=== PATIENT | female | born 1990 | race Caucasian/White ===

== ENCOUNTER 2017-05-18 23:02 | Emergency (ER) | payer SELFPAY ==
[~2017-05-18] VITALS: Ht 152.4 cm; Wt 47.6 kg
[~2017-05-18 23:02] MED LIST: birth control
[2017-05-18 23:12] VITALS: BP_SYST 141
--- NOTE | 2017-05-19 00:57 | NUR ---
Placed in room 04 . Placed on quality assurance monitor body, blood pressure machine and pulse oximeter. To gown for exam. Side rails up. Report given to TIFFANIE Warner.
--- NOTE | 2017-05-19 00:58 | NUR ---
Patient AAO x4, sitting in bed, afebrile at this time, c/o flu-like symptoms: sore throat /, fever, chills, at home, with nausea- no vomiting. Patient states she's taken medications at home and has had no relief of symptoms. No acute distress noted. Will continue to monitor.
--- NOTE | 2017-05-19 01:40 | NUR ---
ER at bedside examining patient.
--- NOTE | 2017-05-19 02:30 | NUR ---
Patient resting quietly. No acute distress noted. Vital signs within normal range.
[2017-05-19 02:56] LABS: STREPTOCOCCUS A SCREEN (RAPID) NEGATIVE (NEGATIVE)
[2017-05-19] MEDS ORDERED: OSELTAMIVIR PHOSPHATE 75 MG CAPSULE PO ONE (03:00)
[2017-05-19 03:12] VITALS: BP_SYST 125
--- NOTE | 2017-05-19 03:12 | NUR ---
Patient given written and verbal discharge instructions and verbalizes understanding. ER MD discussed with patient the results and treatment provided. Patient in stable condition. ID arm band removed. Rx of tamiflu given. Patient educated on pain management and to follow up with PMD. Pain Scale 0/10. Opportunity for questions provided and answered.
== END 2017-05-19 03:12 | disposition home or self-care (01) ==
LOC: SED 23:02
DX: J11.1 Influenza due to unidentified influenza virus with other respiratory manifestations (principal); Z85.42 Personal history of malignant neoplasm of other parts of uterus; Z91.018 Allergy to other foods
CPT/HCPCS: 36415; 86403; 86710; 87081; 99284; G9035

== ENCOUNTER 2017-10-20 13:57 | Emergency (ER) | payer MEDICAID ==
[~2017-10-20] VITALS: Ht 152.4 cm; Wt 47.6 kg
[2017-10-20 14:53] VITALS: BP_SYST 122
[2017-10-20 15:20] LABS: BILIRUBIN,URINE NEGATIVE (NEGATIVE); CLARITY/URINE CLEAR (CLEAR); COLOR,URINE YELLOW (YELLOW); GLUCOSE,URINE NEGATIVE (NEGATIVE); KETONES,URINE 1+ (NEGATIVE); LEUKOCYTE ESTERASE ,URINE NEGATIVE (NEGATIVE); NITRITE, URINE NEGATIVE (NEGATIVE); PH,URINE 6.5 (5.0-8.0); PROTEIN URINE NEGATIVE (NEGATIVE); UROBILINOGEN,URINE 0.2 (0.2-1.0)
[2017-10-20 15:25] LABS: BLOOD, URINE TRACE (NEGATIVE)
[2017-10-20 15:40] LABS: HEMOGLOBIN 13.9 g/dL (12.0-16.0); LYMPHOCYTES # (AUTO) 1.9 K/uL (1.0-5.5); MEAN CORPUSCULAR HGB CONC 34 % (32-36); MONOCYTES # (AUTO) 0.4 K/uL (0.0-1.0); RED CELL DISTRIBUTION WIDTH 12.3 % (9.0-15.0)
[2017-10-20 15:44] LABS: BACTERIA,URINE RARE /HPF (None Seen); MUCUS,URINE 1+ /LPF (None Seen); RBC,URINE 0-3 /HPF (0-3); WBC,URINE 0-3 /HPF (0-3)
[2017-10-20 15:47] LABS: BASOPHILS # (AUTO) 0.1 K/uL (0.0-0.2); BASOPHILS % (AUTO) 0.8 % (0.0-2.0); EOSINOPHILS % (AUTO) 0.5 % (0.0-4.0); HEMATOCRIT 41.3 % (36-48); LYMPHOCYTES % (AUTO) 25.5 % (20.5-51.5); MEAN CORPUSCULAR HEMOGLOBIN 32 pg (27-31); MEAN CORPUSCULAR VOLUME 96 fL (79.0-98.0); NEUTROPHILS % (AUTO) 68.2 % (40.0-70.0); PLATELET COUNT (AUTO) 321 K/uL (130-430); WHITE BLOOD COUNT (AUTO) 7.4 K/uL (4.8-10.8)
[2017-10-20 15:50] LABS: CALCIUM 9.5 mg/dL (8.4-11.0); CREATININE 0.72 mg/dL (0.55-1.30); POTASSIUM 3.4 mmol/L (3.5-5.1)
[2017-10-20 16:48] VITALS: BP_SYST 125
== END 2017-10-20 16:53 | disposition home or self-care (01) ==
LOC: SED 13:57
DX: J02.9 Acute pharyngitis, unspecified (principal); Z88.0 Allergy status to penicillin; Z85.42 Personal history of malignant neoplasm of other parts of uterus; Z91.018 Allergy to other foods
CPT/HCPCS: 36415; 71046-TC; 80048; 81000-TC; 83880; 84484; 84703; 85025; 85379; 93005; 99285

== ENCOUNTER 2022-03-10 20:17 | Emergency (ER) | payer MEDICAID ==
[~2022-03-10] VITALS: Ht 152.4 cm; Wt 61.7 kg
[2022-03-10 20:21] VITALS: BP_SYST 119
--- NOTE | 2022-03-10 20:26 | NUR ---
PT HERE C/O LT ARM PAIN AND SWELLING S/P BITN BY CAT YESTERDAY. DENIES OTHER COMPLAINS. PT AAOX4, NO SOB NOTED AND NOT IN ANY DISTRESS. CARLIE MARISCAL
[2022-03-10 21:35] VITALS: BP_SYST 109
--- NOTE | 2022-03-10 21:40 | NUR ---
PATIENT BROUGHT TO HALLWAY BED.
--- NOTE | 2022-03-10 23:03 | NUR ---
DR. FAIR SPEAKING TO AND ASSESSING PATIENT.
[2022-03-10] MEDS ORDERED: CLIN-142 PO (23:13)
[2022-03-10] MEDS ORDERED: HYDR-3917 PO (23:13)
[2022-03-10] MEDS ORDERED: CIPR-260 PO (23:13)
[2022-03-10] MEDS ORDERED: IBUP-1969 PO (23:13)
[2022-03-10] MEDS ORDERED: DIPHTH,PERTUSS(ACELL),TET VAC 0.5 ML VIAL (Tdap) I.M. ONE (23:15)
[2022-03-10] MEDS ORDERED: CIPROFLOXACIN HCL 500 MG TABLET PO ONE (23:15)
[2022-03-10] MEDS ORDERED: IBUPROFEN 600 MG TABLET PO ONE (23:15)
[2022-03-10] MEDS ORDERED: CLINDAMYCIN HCL 150 MG CAPSULE PO ONE (23:15)
--- NOTE | 2022-03-10 23:17 | NUR ---
MARKED REDNESS AND SWELLING ON LEFT ARM PER MD ORDER.
--- NOTE | 2022-03-10 23:23 | NUR ---
Patient given written and verbal discharge instructions and verbalizes understanding. ER MD discussed with patient the results and treatment provided. Patient in stable condition. ID arm band removed. IV catheter removed intact and dressing applied, no active bleeding. Rx of MULTIPLE MEDICATIONS given. Patient educated on pain management and to follow up with PMD. Pain Scale . Opportunity for questions provided and answered. Medication side effect fact sheet provided.
== END 2022-03-10 23:23 | disposition home or self-care (01) ==
LOC: SED 20:17
DX: S51.832A Puncture wound without foreign body of left forearm, initial encounter (principal); L03.114 Cellulitis of left upper limb; Z88.0 Allergy status to penicillin; Z91.018 Allergy to other foods; Z79.899 Other long term (current) drug therapy; W55.01XA Bitten by cat, initial encounter; Y93.89 Activity, other specified; Y92.89 Other specified places as the place of occurrence of the external cause; Y99.8 Other external cause status
CPT/HCPCS: 90715; 99284

== ENCOUNTER 2023-09-13 10:43 | Emergency (ER) | payer MEDICAID ==
[~2023-09-13] VITALS: Ht 152.4 cm; Wt 59.0 kg
[~2023-09-13 10:43] MED LIST changes: +CIPR-260 PO; +CLIN-142 PO; +HYDR-3917 PO; +IBUP-1969 PO
[2023-09-13 10:56] VITALS: BP_SYST 130; PULSE 71; RESP 16; TEMP 98.3; O2SAT 98
[2023-09-13] MEDS ORDERED: TRIA15CR4 TP (12:02)
[2023-09-13] MEDS ORDERED: PRED50TA PO (12:02)
[2023-09-13] MEDS ORDERED: CETI10CA20 PO (12:02)
[2023-09-13 12:08] VITALS: BP_SYST 130; PULSE 71; RESP 16; TEMP 98.3; O2SAT 98
== END 2023-09-13 12:09 | disposition home or self-care (01) ==
LOC: SED 10:43
DX: L25.9 Unspecified contact dermatitis, unspecified cause (principal); Z88.0 Allergy status to penicillin; Z91.018 Allergy to other foods; Z79.899 Other long term (current) drug therapy
CPT/HCPCS: 99283

== ENCOUNTER 2023-10-21 12:23 | Emergency (ER) | payer MEDICAID ==
[~2023-10-21] VITALS: Ht 152.4 cm; Wt 61.2 kg
[~2023-10-21 12:23] MED LIST changes: +CETI10CA20 PO; +PRED50TA PO; +TRIA15CR4 TP
[2023-10-21 12:36] VITALS: BP_SYST 108; PULSE 64; RESP 18; TEMP 97.8; O2SAT 98
[2023-10-21] MEDS ORDERED: ACET1TAB93 PO (14:45)
[2023-10-21] MEDS ORDERED: CLIN-142 PO (14:45)
[2023-10-21] MEDS: DIPHTH,PERTUSS(ACELL),TET VAC 0.5 ML VIAL (Tdap) I.M. ONE (15:23)
[2023-10-21 15:40] VITALS: BP_SYST 108; PULSE 64; RESP 18; TEMP 97.8; O2SAT 98
== END 2023-10-21 15:37 | disposition home or self-care (01) ==
LOC: SED 12:23
DX: S61.012A Laceration without foreign body of left thumb without damage to nail, initial encounter (principal); Z23 Encounter for immunization; Z88.0 Allergy status to penicillin; Z91.018 Allergy to other foods; Z79.899 Other long term (current) drug therapy; Z79.2 Long term (current) use of antibiotics; W54.0XXA Bitten by dog, initial encounter; Y93.89 Activity, other specified; Y92.89 Other specified places as the place of occurrence of the external cause; Y99.8 Other external cause status
CPT/HCPCS: 90715; 99283